=== PATIENT | male | born 1955 | race Caucasian/White ===

== ENCOUNTER 2021-05-08 00:03 | Inpatient (IN) | payer OTHER, MEDICARE, MEDICAID ==
[~2021-05-08] VITALS: Ht 170.2 cm; Wt 63.0 kg
[2021-05-08] MEDS ORDERED: PRAV20TA4 PO (01:15)
[2021-05-08] MEDS ORDERED: METH-603 PO (01:15)
[2021-05-08] MEDS: normal saline 1000ml 1,000 ML IV SCH (01:30)
[2021-05-08] MEDS ORDERED: potassium Cl 20 mEq SR tablet PO PRN ×2 (01:30)
[2021-05-08] MEDS ORDERED: magnesium 2GM in 50ml NS 50 ML IV PRN (01:30)
[2021-05-08] MEDS ORDERED: magnesium 4gm in 100ml NS 100 ML IV PRN (01:30)
[2021-05-08] MEDS ORDERED: magnesium Cl slow-release 64mg tablet PO PRN (01:30)
[2021-05-08] MEDS ORDERED: ondansetron/PF 4mg/2ml inj IV PRN (01:30)
[2021-05-08] MEDS ORDERED: potassium Cl 40MEQ/1/2NS 520ml 520 ML IV PRN ×2 (01:30)
[2021-05-08] MEDS ORDERED: acetaminophen 325mg tablet PO PRN (01:30)
[2021-05-08 03:27] LABS: D-DIMER 0.53 MG/L FEU (0-0.50)
[2021-05-08 03:29] LABS: C-REACTIVE PROTEIN 15.26 MG/DL (0.0-0.5)
[2021-05-08 03:56] VITALS: BP 150/76
[2021-05-08 06:00] VITALS: BP 127/72
--- NOTE | 2021-05-08 06:16 | NUR ---
patient recieved at 0325 from ED department, arrives in w/c. patient assisted to bed. bed mobility independent. education and room orientation reviewed with patient. patinet on 4L NC. patient admitted because he was deeloping sob and dizziness two days ago 9 days after covid vaccination. patient dx covid positive. saturates @ 96% on 4L NC. no distress ntoed. skin check perfomed with charge december rn , no abnormalities noted. patient lives at home alone takes care of self, reports that he has leukemia. patient dneies taking any other medications other than for leukemia. bbl, night light on, fall safety measures installed.
--- NOTE | 2021-05-08 06:45 | NUR ---
Patient in room COVID 02. I have received report from ELVA MARTINEZ and had the opportunity to ask questions and assume patient care.
[2021-05-08] MEDS ORDERED: heparin, porcine 5000 units/ml vial SQ SCH (08:00)
[2021-05-08] MEDS: K and/or MAG REPLACEMENT MC SCH (08:00)
[2021-05-08] MEDS: dexamethasone 4mg/ml inj IV SCH ×2 (10:14→20:41)
[2021-05-08 11:00] VITALS: BP 124/71
[2021-05-08 14:00] VITALS: BP 118/62
[2021-05-08 18:00] VITALS: BP 123/75
--- NOTE | 2021-05-08 18:00 | NUR ---
report recieved from gladis Dillon.
--- NOTE | 2021-05-08 18:34 | NUR ---
Problems reprioritized. Patient report given, questions answered & plan of care reviewed with ELVA MARTINEZ.
[2021-05-08] MEDS: REMDESIVIR INJ 100 MG in normal saline 100ml IV soln 80 ML IV SCH (20:41)
[2021-05-08] MEDS: methadone 10mg tablet PO SCH (20:42)
[2021-05-08] MEDS: enoxaparin 40mg/0.4ml syringe SUBCUT SCH (20:42)
[2021-05-08 22:00] VITALS: BP 133/65
[2021-05-09 02:00] VITALS: BP 144/62
[2021-05-09 06:00] VITALS: BP 120/69
[2021-05-09] MEDS: K and/or MAG REPLACEMENT MC SCH ×2 (08:00→20:00)
[2021-05-09] MEDS: methadone 10mg tablet PO SCH ×3 (08:00→21:08)
[2021-05-09] MEDS: atorvastatin 10mg tablet PO SCH (08:23)
[2021-05-09] MEDS: dexamethasone 4mg/ml inj IV SCH ×2 (08:24→21:11)
[2021-05-09 08:33] LABS: BASOPHILS % (AUTO) 0 % (0-1); EOSINOPHILS % (AUTO) 0 % (0-6); HEMATOCRIT 43.9 % (42.0-52.0); HEMOGLOBIN 14.5 g/dl (14.0-17.9); LYMPHOCYTES # (AUTO) 0.8 X10'3 (1.1-4.8); LYMPHOCYTES % (AUTO) 5.5 % (21-51); MEAN CORPUSCULAR HEMOGLOBIN 29.2 PG (27.0-31.0); MEAN CORPUSCULAR HGB CONC 33.1 g/dL (33.0-36.5); MEAN CORPUSCULAR VOLUME 88.1 FL (78-98); MEAN PLATELET VOLUME 8.9 FL (7.4-10.4); MONOCYTES # (AUTO) 1.1 X10'3 (0-0.9); MONOCYTES % (AUTO) 7.8 % (2-12); NEUTROPHILS # (AUTO) 12.3 X10'3 (1.8-7.7); NEUTROPHILS % (AUTO) 86.7 % (42-75); PLATELET COUNT 230 X10'3 (140-440); RED BLOOD COUNT 4.98 X10'6 (4.70-6.10); RED CELL DISTRIBUTION WIDTH 15.2 % (11.5-14.5); WHITE BLOOD COUNT 14.2 X10'3 (4.5-11.0)
[2021-05-09 08:49] LABS: D-DIMER 0.65 MG/L FEU (0-0.50)
[2021-05-09 09:07] LABS: ALANINE AMINOTRANSFERASE 20 U/L (12-78); ALBUMIN 2.1 G/DL (3.4-5.0); ALBUMIN/GLOBULIN RATIO 0.6 (1.1-1.5); ALKALINE PHOSPHATASE 55 IU/L (46-116); ANION GAP 8 (8-16); ASPARTATE AMINO TRANSFERASE 27 U/L (10-37); BILIRUBIN,TOTAL 0.4 MG/DL (0.1-1.0); BLOOD UREA NITROGEN 25 MG/DL (7-18); BUN/CREATININE RATIO 27.5 (5.4-32.0); C-REACTIVE PROTEIN 13.88 MG/DL (0.0-0.5); CALCIUM 8.5 MG/DL (8.5-10.1); CHLORIDE 103 MMOL/L (99-107); CREATININE 0.91 MG/DL (0.60-1.10); GLUCOSE 147 MG/DL (70-104); MAGNESIUM 1.7 MG/DL (1.5-2.4); POTASSIUM 4.1 MMOL/L (3.5-5.1); SODIUM 136 MMOL/L (135-145); TOTAL CARBON DIOXIDE 24.9 MMOL/L (24-32); TOTAL PROTEIN 5.4 G/DL (6.4-8.2); eGFR 83 ML/MIN
[2021-05-09 11:00] VITALS: BP 128/66
[2021-05-09 15:00] VITALS: BP 120/71
--- NOTE | 2021-05-09 19:03 | NUR ---
Patient in room COVID 02. I have received report from Jean Pierre STEVENSON and had the opportunity to ask questions and assume patient care.
[2021-05-09 20:00] VITALS: BP 122/70
[2021-05-09] MEDS: REMDESIVIR INJ 100 MG in normal saline 100ml IV soln 80 ML IV SCH (21:08)
[2021-05-09] MEDS: enoxaparin 40mg/0.4ml syringe SUBCUT SCH (21:09)
[2021-05-09] MEDS: acetaminophen 325mg tablet PO PRN (21:23)
[2021-05-09 21:24] VITALS: BP 118/76
[2021-05-10] VITALS: BP 121/72
[2021-05-10] MEDS: normal saline 1000ml 1,000 ML IV SCH (01:30)
--- NOTE | 2021-05-10 06:42 | NUR ---
Problems reprioritized. Patient report given, questions answered & plan of care reviewed with Maria Elena STEVENSON.
[2021-05-10 07:00] VITALS: BP 118/76
[2021-05-10 07:52] LABS: BASOPHILS % (AUTO) 0.1 % (0-1); EOSINOPHILS % (AUTO) 0 % (0-6); HEMATOCRIT 49.6 % (42.0-52.0); HEMOGLOBIN 16.6 g/dl (14.0-17.9); LYMPHOCYTES # (AUTO) 0.5 X10'3 (1.1-4.8); LYMPHOCYTES % (AUTO) 3.8 % (21-51); MEAN CORPUSCULAR HEMOGLOBIN 29.5 PG (27.0-31.0); MEAN CORPUSCULAR HGB CONC 33.5 g/dL (33.0-36.5); MEAN CORPUSCULAR VOLUME 88.1 FL (78-98); MEAN PLATELET VOLUME 8.5 FL (7.4-10.4); MONOCYTES # (AUTO) 0.8 X10'3 (0-0.9); MONOCYTES % (AUTO) 6.3 % (2-12); NEUTROPHILS % (AUTO) 89.8 % (42-75); PLATELET COUNT 260 X10'3 (140-440); RED BLOOD COUNT 5.63 X10'6 (4.70-6.10); RED CELL DISTRIBUTION WIDTH 15.6 % (11.5-14.5); WHITE BLOOD COUNT 13.4 X10'3 (4.5-11.0)
[2021-05-10] MEDS: atorvastatin 10mg tablet PO SCH (07:59)
[2021-05-10] MEDS: dexamethasone 4mg/ml inj IV SCH (07:59)
[2021-05-10] MEDS: methadone 10mg tablet PO SCH ×2 (07:59→20:00)
[2021-05-10] MEDS: K and/or MAG REPLACEMENT MC SCH ×2 (08:00→20:00)
[2021-05-10 08:03] LABS: D-DIMER 0.81 MG/L FEU (0-0.50)
[2021-05-10 08:17] LABS: ALANINE AMINOTRANSFERASE 29 U/L (12-78); ALBUMIN 2.1 G/DL (3.4-5.0); ALBUMIN/GLOBULIN RATIO 0.6 (1.1-1.5); ALKALINE PHOSPHATASE 60 IU/L (46-116); ANION GAP 8 (8-16); ASPARTATE AMINO TRANSFERASE 47 U/L (10-37); BILIRUBIN,TOTAL 0.5 MG/DL (0.1-1.0); BLOOD UREA NITROGEN 25 MG/DL (7-18); BUN/CREATININE RATIO 29.4 (5.4-32.0); C-REACTIVE PROTEIN 17.63 MG/DL (0.0-0.5); CALCIUM 8.9 MG/DL (8.5-10.1); CHLORIDE 101 MMOL/L (99-107); CREATININE 0.85 MG/DL (0.60-1.10); GLUCOSE 165 MG/DL (70-104); MAGNESIUM 1.8 MG/DL (1.5-2.4); POTASSIUM 4.1 MMOL/L (3.5-5.1); SODIUM 134 MMOL/L (135-145); TOTAL CARBON DIOXIDE 25.1 MMOL/L (24-32); TOTAL PROTEIN 5.6 G/DL (6.4-8.2); eGFR 90 ML/MIN
[2021-05-10 11:00] VITALS: BP 118/76
[2021-05-10] MEDS: CefTRIAXone 2gm/D5W 50ml BAG 50 ML IV SCH (12:49)
[2021-05-10 15:00] VITALS: BP 123/77
[2021-05-10] MEDS: methylPREDNISolone sod succ/PF 40mg inj. IV SCH (16:55)
--- NOTE | 2021-05-10 18:30 | NUR ---
Patient in room COVID 02. I have received report from CRISTHIAN STEVENSON and had the opportunity to ask questions and assume patient care.
[2021-05-10] MEDS: acetaminophen 325mg tablet PO PRN (19:15)
[2021-05-10] MEDS: REMDESIVIR INJ 100 MG in normal saline 100ml IV soln 80 ML IV SCH (19:42)
[2021-05-10 20:00] VITALS: BP 135/74
[2021-05-10] MEDS: enoxaparin 40mg/0.4ml syringe SUBCUT SCH (23:07)
[2021-05-11] VITALS: BP 145/80
[2021-05-11] MEDS: methylPREDNISolone sod succ/PF 40mg inj. IV SCH ×4 (00:44→23:49)
[2021-05-11] MEDS: methadone 10mg tablet PO SCH ×4 (00:50→21:53)
[2021-05-11 04:00] VITALS: BP 128/73
--- NOTE | 2021-05-11 06:30 | NUR ---
Problems reprioritized. Patient report given, questions answered & plan of care reviewed with WILMER STEVENSON.
[2021-05-11 08:00] VITALS: BP 119/58
[2021-05-11] MEDS: K and/or MAG REPLACEMENT MC SCH ×2 (08:00→20:00)
[2021-05-11] MEDS: CefTRIAXone 2gm/D5W 50ml BAG 50 ML IV SCH (08:52)
[2021-05-11] MEDS: atorvastatin 10mg tablet PO SCH (08:52)
[2021-05-11 09:01] LABS: BASOPHILS % (AUTO) 0.1 % (0-1); EOSINOPHILS % (AUTO) 0 % (0-6); HEMATOCRIT 49.8 % (42.0-52.0); HEMOGLOBIN 16.5 g/dl (14.0-17.9); LYMPHOCYTES # (AUTO) 0.6 X10'3 (1.1-4.8); LYMPHOCYTES % (AUTO) 5.1 % (21-51); MEAN CORPUSCULAR HEMOGLOBIN 29.3 PG (27.0-31.0); MEAN CORPUSCULAR VOLUME 88.8 FL (78-98); MEAN PLATELET VOLUME 8.2 FL (7.4-10.4); MONOCYTES # (AUTO) 1.1 X10'3 (0-0.9); MONOCYTES % (AUTO) 9.8 % (2-12); NEUTROPHILS # (AUTO) 9.8 X10'3 (1.8-7.7); PLATELET COUNT 288 X10'3 (140-440); RED BLOOD COUNT 5.61 X10'6 (4.70-6.10); RED CELL DISTRIBUTION WIDTH 15.4 % (11.5-14.5); WHITE BLOOD COUNT 11.5 X10'3 (4.5-11.0)
[2021-05-11 09:20] LABS: D-DIMER 1.05 MG/L FEU (0-0.50)
[2021-05-11 09:39] LABS: ALANINE AMINOTRANSFERASE 28 U/L (12-78); ALBUMIN 2.1 G/DL (3.4-5.0); ALBUMIN/GLOBULIN RATIO 0.6 (1.1-1.5); ALKALINE PHOSPHATASE 60 IU/L (46-116); ANION GAP 6 (8-16); ASPARTATE AMINO TRANSFERASE 33 U/L (10-37); BILIRUBIN,TOTAL 0.4 MG/DL (0.1-1.0); BLOOD UREA NITROGEN 37 MG/DL (7-18); BUN/CREATININE RATIO 37.4 (5.4-32.0); C-REACTIVE PROTEIN 14.65 MG/DL (0.0-0.5); CALCIUM 9.4 MG/DL (8.5-10.1); CHLORIDE 100 MMOL/L (99-107); CREATININE 0.99 MG/DL (0.60-1.10); GLUCOSE 185 MG/DL (70-104); MAGNESIUM 2.2 MG/DL (1.5-2.4); POTASSIUM 4.2 MMOL/L (3.5-5.1); SODIUM 134 MMOL/L (135-145); TOTAL PROTEIN 5.8 G/DL (6.4-8.2); eGFR 75 ML/MIN
[2021-05-11 12:00] VITALS: BP 134/65
[2021-05-11] MEDS ORDERED: ondansetron 4mg rapidly disintigrating tab PO PRN (15:15)
--- NOTE | 2021-05-11 17:09 | NUR ---
PAGER ID: [phone] MESSAGE: Edie [phone]- re Ken Roberson- c/o 06/25 pain, non specific. Has chronic pain syndrome. Has methadone BID but nothing for breakthrough. Can we order short acting too? Eleroy Q6? Thank you
[2021-05-11] MEDS: HYDROcodone/acetaminophen 5mg/325mg tablet PO PRN ×2 (17:48→21:54)
--- NOTE | 2021-05-11 21:28 | NUR ---
switch technician noted ST changes and lengthened QT on mobile monitor. EKG was done, Dr. Robledo on unit and reviewed EKG unremarkable, no change in orders. Will continue to monitor.
[2021-05-11] MEDS: enoxaparin 40mg/0.4ml syringe SUBCUT SCH (21:52)
[2021-05-11] MEDS: lactobacillus rhamnosus 10,000 MMU CELLS/CAPSULE PO SCH (21:55)
[2021-05-11] MEDS: REMDESIVIR INJ 100 MG in normal saline 100ml IV soln 80 ML IV SCH (21:55)
[2021-05-11 22:00] VITALS: BP 127/68
[2021-05-12 02:00] VITALS: BP 137/70
[2021-05-12] MEDS: normal saline 1000ml 1,000 ML IV SCH (05:57)
[2021-05-12 07:00] VITALS: BP 175/85
[2021-05-12] MEDS: K and/or MAG REPLACEMENT MC SCH ×2 (08:00→20:00)
[2021-05-12] MEDS: lactobacillus rhamnosus 10,000 MMU CELLS/CAPSULE PO SCH ×2 (08:00→20:30)
[2021-05-12] MEDS: CefTRIAXone 2gm/D5W 50ml BAG 50 ML IV SCH (08:18)
[2021-05-12] MEDS: methylPREDNISolone sod succ/PF 40mg inj. IV SCH ×2 (08:18→15:59)
[2021-05-12] MEDS: methadone 10mg tablet PO SCH ×2 (08:19→20:30)
[2021-05-12] MEDS: atorvastatin 10mg tablet PO SCH (08:19)
[2021-05-12 09:14] LABS: D-DIMER 0.79 MG/L FEU (0-0.50)
[2021-05-12 09:33] LABS: ANION GAP 9 (8-16); BLOOD UREA NITROGEN 40 MG/DL (7-18); CHLORIDE 101 MMOL/L (99-107); CREATININE 0.97 MG/DL (0.60-1.10); GLUCOSE 231 MG/DL (70-104); SODIUM 136 MMOL/L (135-145); TOTAL CARBON DIOXIDE 26.5 MMOL/L (24-32)
[2021-05-12 09:34] LABS: ALANINE AMINOTRANSFERASE 27 U/L (12-78); ALBUMIN 2.1 G/DL (3.4-5.0); ALBUMIN/GLOBULIN RATIO 0.6 (1.1-1.5); ALKALINE PHOSPHATASE 55 IU/L (46-116); ASPARTATE AMINO TRANSFERASE 27 U/L (10-37); BILIRUBIN,TOTAL 0.2 MG/DL (0.1-1.0); BUN/CREATININE RATIO 41.2 (5.4-32.0); C-REACTIVE PROTEIN 6.63 MG/DL (0.0-0.5); CALCIUM 9.1 MG/DL (8.5-10.1); MAGNESIUM 2.2 MG/DL (1.5-2.4); POTASSIUM 4.4 MMOL/L (3.5-5.1); TOTAL PROTEIN 5.7 G/DL (6.4-8.2); eGFR 77 ML/MIN
[2021-05-12 11:00] VITALS: BP 121/65
[2021-05-12 11:14] LABS: BASOPHILS % (AUTO) 0.1 % (0-1); EOSINOPHILS % (AUTO) 0 % (0-6); HEMATOCRIT 43.6 % (42.0-52.0); HEMOGLOBIN 14.7 g/dl (14.0-17.9); LYMPHOCYTES # (AUTO) 0.5 X10'3 (1.1-4.8); LYMPHOCYTES % (AUTO) 5.1 % (21-51); MEAN CORPUSCULAR HEMOGLOBIN 29.7 PG (27.0-31.0); MEAN CORPUSCULAR HGB CONC 33.7 g/dL (33.0-36.5); MEAN CORPUSCULAR VOLUME 88.2 FL (78-98); MEAN PLATELET VOLUME 7.7 FL (7.4-10.4); MONOCYTES # (AUTO) 0.8 X10'3 (0-0.9); MONOCYTES % (AUTO) 7.8 % (2-12); NEUTROPHILS # (AUTO) 8.6 X10'3 (1.8-7.7); PLATELET COUNT 280 X10'3 (140-440); RED BLOOD COUNT 4.95 X10'6 (4.70-6.10); RED CELL DISTRIBUTION WIDTH 14.8 % (11.5-14.5); WHITE BLOOD COUNT 9.9 X10'3 (4.5-11.0)
[2021-05-12 15:00] VITALS: BP 149/70
[2021-05-12 18:00] VITALS: BP 147/62
--- NOTE | 2021-05-12 18:13 | NUR ---
Problems reprioritized. Patient report given, questions answered & plan of care reviewed with Jovan STEVENSON.
--- NOTE | 2021-05-12 18:15 | NUR ---
Patient in room COVID 05. I have received report from ELVA King and had the opportunity to ask questions and assume patient care.
--- NOTE | 2021-05-12 20:00 | NUR ---
Partuient is resting comfortably in no apparent distress. VSS in normal limits
[2021-05-12] MEDS: enoxaparin 40mg/0.4ml syringe SUBCUT SCH (20:31)
[2021-05-13] MEDS: methylPREDNISolone sod succ/PF 40mg inj. IV SCH ×4 (01:23→23:23)
[2021-05-13 02:00] VITALS: BP 150/70
--- NOTE | 2021-05-13 06:31 | NUR ---
Problems reprioritized. Patient report given, questions answered & plan of care reviewed with ELVA Wakefield.
--- NOTE | 2021-05-13 06:40 | NUR ---
Patient in room COVID 05. I have received report from ELVA LOWE and had the opportunity to ask questions and assume patient care.
[2021-05-13 07:00] VITALS: BP 156/71
[2021-05-13] MEDS: K and/or MAG REPLACEMENT MC SCH ×2 (08:00→19:41)
[2021-05-13 08:30] LABS: BASOPHILS % (AUTO) 0.1 % (0-1); EOSINOPHILS % (AUTO) 0 % (0-6); HEMATOCRIT 45.5 % (42.0-52.0); LYMPHOCYTES # (AUTO) 0.6 X10'3 (1.1-4.8); LYMPHOCYTES % (AUTO) 4.9 % (21-51); MEAN CORPUSCULAR HEMOGLOBIN 29.2 PG (27.0-31.0); MEAN CORPUSCULAR HGB CONC 32.9 g/dL (33.0-36.5); MEAN CORPUSCULAR VOLUME 88.6 FL (78-98); MEAN PLATELET VOLUME 7.9 FL (7.4-10.4); MONOCYTES # (AUTO) 0.7 X10'3 (0-0.9); MONOCYTES % (AUTO) 5.3 % (2-12); NEUTROPHILS # (AUTO) 11.4 X10'3 (1.8-7.7); NEUTROPHILS % (AUTO) 89.7 % (42-75); PLATELET COUNT 333 X10'3 (140-440); RED BLOOD COUNT 5.14 X10'6 (4.70-6.10); RED CELL DISTRIBUTION WIDTH 14.8 % (11.5-14.5); WHITE BLOOD COUNT 12.7 X10'3 (4.5-11.0)
[2021-05-13 08:59] LABS: D-DIMER 0.85 MG/L FEU (0-0.50)
[2021-05-13 09:06] LABS: PLATELET ESTIMATE NORMAL; TOTAL CELLS COUNTED 100
[2021-05-13 09:20] LABS: ALANINE AMINOTRANSFERASE 44 U/L (12-78); ALBUMIN 2.2 G/DL (3.4-5.0); ALBUMIN/GLOBULIN RATIO 0.6 (1.1-1.5); ALKALINE PHOSPHATASE 139 IU/L (46-116); ANION GAP 7 (8-16); ASPARTATE AMINO TRANSFERASE 40 U/L (10-37); BILIRUBIN,TOTAL 0.3 MG/DL (0.1-1.0); BLOOD UREA NITROGEN 38 MG/DL (7-18); BUN/CREATININE RATIO 36.5 (5.4-32.0); C-REACTIVE PROTEIN 3.87 MG/DL (0.0-0.5); CALCIUM 8.9 MG/DL (8.5-10.1); CHLORIDE 101 MMOL/L (99-107); CREATININE 1.04 MG/DL (0.60-1.10); GLUCOSE 234 MG/DL (70-104); MAGNESIUM 1.9 MG/DL (1.5-2.4); POTASSIUM 4.2 MMOL/L (3.5-5.1); SODIUM 135 MMOL/L (135-145); TOTAL CARBON DIOXIDE 27.5 MMOL/L (24-32); TOTAL PROTEIN 5.6 G/DL (6.4-8.2); eGFR 71 ML/MIN
[2021-05-13 11:00] VITALS: BP 139/63
--- NOTE | 2021-05-13 11:32 | NUR ---
Initial: Pt admit for acute respiratory failure with hypoxia and COVID-19 infection with bilat PNA. Pt on an easy to chew regular diet, initially with 50% PO intake down to 25% PO intake, however back up to 50% PO intake at two most recent documented meals. Pt currently not meeting estimated nutrient needs. Recommend Ensure Enlive TID to optimize PO intake. ONS to be sent pending MD approval in EMR. Noted pt A/O x 2 and confused per physical assessment though documented to be independent with meals. Pt would likely benefit from assistance with meals. D/w dietary to chop meat to assist. LBM 05/10, not receiving bowel care. D/w dietary to send prune juice with next meal to assist with bowel regularity. Will continue to follow closely. Recommendations: 1) Continue EC7 regular diet 2) Chop meat; monitor need for encouragement and assistance with meals given pt A/O x 2 and confused 3) Ensure Enlive TID, pending MD approval in EMR 4) Routine bowel care 5) Scaled weight this admit; weekly scaled weights thereafter Addendum: 05/13/21 at [address] Amended: Links added.
[2021-05-13] MEDS: atorvastatin 10mg tablet PO SCH (11:44)
[2021-05-13] MEDS: lactobacillus rhamnosus 10,000 MMU CELLS/CAPSULE PO SCH ×2 (11:44→19:45)
[2021-05-13] MEDS: enoxaparin 40mg/0.4ml syringe SUBCUT SCH ×2 (11:45→19:45)
[2021-05-13] MEDS: methadone 10mg tablet PO SCH ×2 (11:45→19:45)
[2021-05-13] MEDS: CefTRIAXone 2gm/D5W 50ml BAG 50 ML IV SCH (11:46)
[2021-05-13] MEDS: lactose-reduced food (Ensure Enlive) - 237ml bottle PO SCH ×2 (13:00→18:00)
[2021-05-13 16:00] VITALS: BP 133/54
[2021-05-13] MEDS ORDERED: ALBUTEROL INHALER 1 PUFF/90 MCG INHALER IH PRN (16:05)
[2021-05-13 18:00] VITALS: BP 152/60
--- NOTE | 2021-05-13 18:15 | NUR ---
Patient in room COVID 05. I have received report from Twyla STEVENSON and had the opportunity to ask questions and assume patient care.
--- NOTE | 2021-05-13 18:35 | NUR ---
Problems reprioritized. Patient report given, questions answered & plan of care reviewed with ELVA LYNCH.
--- NOTE | 2021-05-13 18:35 | NUR ---
Problems reprioritized. Patient report given, questions answered & plan of care reviewed with ELVA LYNCH.
[2021-05-13] MEDS: HYDROcodone/acetaminophen 5mg/325mg tablet PO PRN (21:08)
[2021-05-13 22:00] VITALS: BP 154/77
[2021-05-14] MEDS: normal saline 1000ml 1,000 ML IV SCH (01:30)
[2021-05-14 03:00] VITALS: BP 150/75
--- NOTE | 2021-05-14 06:16 | NUR ---
Problems reprioritized. Patient report given, questions answered & plan of care reviewed with Twyla STEVENSON.
--- NOTE | 2021-05-14 06:17 | NUR ---
Patient in room COVID 05. I have received report from ELVA LNYCH and had the opportunity to ask questions and assume patient care.
[2021-05-14 07:00] VITALS: BP 147/69
[2021-05-14] MEDS: lactose-reduced food (Ensure Enlive) - 237ml bottle PO SCH ×3 (08:00→18:01)
[2021-05-14] MEDS: K and/or MAG REPLACEMENT MC SCH ×2 (08:00→20:00)
[2021-05-14 08:38] LABS: MAGNESIUM 2.1 MG/DL (1.5-2.4)
[2021-05-14 09:30] LABS: D-DIMER 0.69 MG/L FEU (0-0.50)
[2021-05-14 09:34] LABS: BASOPHILS % (AUTO) 0.1 % (0-1); EOSINOPHILS % (AUTO) 0.1 % (0-6); HEMATOCRIT 44.5 % (42.0-52.0); HEMOGLOBIN 14.4 g/dl (14.0-17.9); LYMPHOCYTES # (AUTO) 0.5 X10'3 (1.1-4.8); LYMPHOCYTES % (AUTO) 4.7 % (21-51); MEAN CORPUSCULAR HEMOGLOBIN 28.8 PG (27.0-31.0); MEAN CORPUSCULAR HGB CONC 32.5 g/dL (33.0-36.5); MEAN CORPUSCULAR VOLUME 88.6 FL (78-98); MEAN PLATELET VOLUME 7.9 FL (7.4-10.4); MONOCYTES # (AUTO) 0.7 X10'3 (0-0.9); MONOCYTES % (AUTO) 5.7 % (2-12); NEUTROPHILS # (AUTO) 10.4 X10'3 (1.8-7.7); NEUTROPHILS % (AUTO) 89.4 % (42-75); PLATELET COUNT 343 X10'3 (140-440); RED BLOOD COUNT 5.02 X10'6 (4.70-6.10); RED CELL DISTRIBUTION WIDTH 14.8 % (11.5-14.5); WHITE BLOOD COUNT 11.6 X10'3 (4.5-11.0)
[2021-05-14 09:51] LABS: ALANINE AMINOTRANSFERASE 42 U/L (12-78); ALBUMIN 2.2 G/DL (3.4-5.0); ALBUMIN/GLOBULIN RATIO 0.7 (1.1-1.5); ALKALINE PHOSPHATASE 106 IU/L (46-116); ANION GAP 7 (8-16); ASPARTATE AMINO TRANSFERASE 24 U/L (10-37); BILIRUBIN,TOTAL 0.3 MG/DL (0.1-1.0); BLOOD UREA NITROGEN 32 MG/DL (7-18); BUN/CREATININE RATIO 34.4 (5.4-32.0); C-REACTIVE PROTEIN 2.58 MG/DL (0.0-0.5); CALCIUM 8.5 MG/DL (8.5-10.1); CHLORIDE 99 MMOL/L (99-107); CREATININE 0.93 MG/DL (0.60-1.10); GLUCOSE 254 MG/DL (70-104); POTASSIUM 4.2 MMOL/L (3.5-5.1); SODIUM 137 MMOL/L (135-145); TOTAL CARBON DIOXIDE 30.8 MMOL/L (24-32); TOTAL PROTEIN 5.5 G/DL (6.4-8.2); eGFR 81 ML/MIN
[2021-05-14] MEDS: enoxaparin 40mg/0.4ml syringe SUBCUT SCH ×2 (09:52→20:00)
[2021-05-14] MEDS: methylPREDNISolone sod succ/PF 40mg inj. IV SCH ×2 (09:53→17:23)
[2021-05-14] MEDS: lactobacillus rhamnosus 10,000 MMU CELLS/CAPSULE PO SCH ×2 (09:53→19:59)
[2021-05-14] MEDS: methadone 10mg tablet PO SCH ×2 (09:53→19:59)
[2021-05-14] MEDS: atorvastatin 10mg tablet PO SCH (09:53)
[2021-05-14 12:00] VITALS: BP 153/70
[2021-05-14 14:00] VITALS: BP 134/75
--- NOTE | 2021-05-14 16:32 | NUR ---
IT HAD BEEN BROUGHT TO THIS NURSE'S ATTENTION THAT PATIENT HEART RATE WAS HANGING OUT IN THE MID TO HIGH 40'S, NOTICED THAT HEART WOULD BE IN THE 40'S WHILE SLEEPING AND WHILE AWAKE FOR BE IN NORMAL RANGE. NOTIFIED THE DR, DR STATED THAT SOME PATIENT'S WILL HAVE A LOW HEART RATE WHILE SLEEPING AND WAS NOT CONCERNED AT THIS TIME
[2021-05-14 18:00] VITALS: BP 121/66
--- NOTE | 2021-05-14 18:26 | NUR ---
Problems reprioritized. Patient report given, questions answered & plan of care reviewed with ELVA LYNCH.
--- NOTE | 2021-05-14 18:30 | NUR ---
Patient in room COVID 05. I have received report from Twyla STEVENSON and had the opportunity to ask questions and assume patient care.
[2021-05-14 22:00] VITALS: BP 117/60
[2021-05-15] MEDS: methylPREDNISolone sod succ/PF 40mg inj. IV SCH ×3 (00:10→20:05)
[2021-05-15 02:00] VITALS: BP 147/87
[2021-05-15] MEDS: HYDROcodone/acetaminophen 5mg/325mg tablet PO PRN ×3 (04:42→22:45)
[2021-05-15] MEDS: lactobacillus rhamnosus 10,000 MMU CELLS/CAPSULE PO SCH ×2 (07:33→20:05)
[2021-05-15] MEDS: atorvastatin 10mg tablet PO SCH (07:33)
[2021-05-15] MEDS: methadone 10mg tablet PO SCH ×2 (07:33→20:05)
[2021-05-15] MEDS: K and/or MAG REPLACEMENT MC SCH ×2 (07:33→20:00)
[2021-05-15] MEDS: lactose-reduced food (Ensure Enlive) - 237ml bottle PO SCH ×3 (07:34→17:55)
[2021-05-15] MEDS: enoxaparin 40mg/0.4ml syringe SUBCUT SCH ×2 (07:35→20:06)
[2021-05-15] MEDS: normal saline 1000ml 1,000 ML IV SCH ×2 (07:37→11:16)
[2021-05-15 08:00] VITALS: BP 130/79
--- NOTE | 2021-05-15 09:05 | NUR ---
PAGER ID: [phone] MESSAGE: Alfonso Chu 5A PT. SHOWING INCREASED S/SX CONFUSION. HEAD CT? ABGS? UA SENT. Vincenzo [id number] CONFUSION INCREASING SLIGHTLY OVER SEVERAL SHIFTS PER REPORT. PT A&0X1 PER ASSESSMENT.
[2021-05-15 09:18] LABS: CLARITY,URINE CLEAR (Clear); COLOR,URINE YELLOW (Yellow); GLUCOSE, URINE >=1000 mg/dl (Neg); KETONES,URINE NEGATIVE (Neg); LEUKOCYTE ESTERASE ,URINE NEGATIVE (Neg); NITRITES, URINE NEGATIVE (Neg); OCCULT BLOOD,URINE NEGATIVE (Neg); PROTEIN,URINE NEGATIVE (Neg); UROBILINOGEN,URINE 0.2 E.U/dL (0.2-1.0)
[2021-05-15 09:34] LABS: UA COLLECTION TYPE CLN CATCH MIDSTREAM
[2021-05-15 09:35] LABS: BACTERIA,URINE FEW /HPF (Neg); RBC,URINE 0-2 /HPF (0-2); SQUAMOUS EPITHELIAL CELL,UR MODERATE /LPF (FEW); WBC,URINE 0-4 /HPF (0-4)
[2021-05-15 09:56] LABS: ALANINE AMINOTRANSFERASE 46 U/L (12-78); ALBUMIN 2.3 G/DL (3.4-5.0); ALBUMIN/GLOBULIN RATIO 0.6 (1.1-1.5); ALKALINE PHOSPHATASE 130 IU/L (46-116); ASPARTATE AMINO TRANSFERASE 30 U/L (10-37); BILIRUBIN,TOTAL 0.6 MG/DL (0.1-1.0); C-REACTIVE PROTEIN 1.79 MG/DL (0.0-0.5); CALCIUM 9.2 MG/DL (8.5-10.1); CHLORIDE 93 MMOL/L (99-107); CREATININE 0.97 MG/DL (0.60-1.10); GLUCOSE 305 MG/DL (70-104); MAGNESIUM 2.6 MG/DL (1.5-2.4); TOTAL CARBON DIOXIDE 27.1 MMOL/L (24-32); TOTAL PROTEIN 6.3 G/DL (6.4-8.2); eGFR 77 ML/MIN
--- NOTE | 2021-05-15 10:01 | NUR ---
PAGER ID: [phone] MESSAGE: Alfonso BARRAGAN 5A FYI PT. GLUCOSE>200 FOR SOME TIME. NO PROTOCOL ORDERED, NO ACCUCHECKS ORDERED. GLUCOSE.> 1000 IN URINE MAMI [id number]
[2021-05-15 10:02] LABS: ANION GAP 11 (8-16); BLOOD UREA NITROGEN 36 MG/DL (7-18); BUN/CREATININE RATIO 37.1 (5.4-32.0); SODIUM 131 MMOL/L (135-145)
[2021-05-15] MEDS ORDERED: MESSAGE TO PHARMACY PO ONE (10:05)
[2021-05-15] MEDS ORDERED: dextrose 50%-water 50ml dispensing syringe IV PRN ×2 (10:05)
[2021-05-15] MEDS ORDERED: dextrose ORAL solution 15 GM/59 ML bottle PO PRN ×2 (10:05)
[2021-05-15] MEDS ORDERED: glucagon, human recombinant 1mg kit SUBCUT PRN (10:05)
[2021-05-15 10:11] LABS: ABG BASE EXCESS 4.5 mmol/L (-2.0-2.0); ABG HCO3 27.6 mmol/L (22.0-26.0); ABG OXYGEN SATURATION 91.9 % (94-97); ABG PCO2 (T) 36.6 mmHg (35.0-48.0); ABG PO2 (T) 57.9 mmHg (75.0-100.0); ALLEN'S TEST POSITIVE; FCOHb 0.5 % (0.0-3.9); FLOW 6 L/min; FMetHb 0.1 % (0.0-1.5); FO2Hb 91.3 % (94-97); TOTAL HEMOGLOBIN 15.5 G/dl (14.0-18.0)
[2021-05-15] MEDS ORDERED: normal saline 1000ml 1,000 ML IV SCH (10:40)
[2021-05-15 10:54] LABS: BASOPHILS # (AUTO) 0.1 X10'3 (0-0.2); BASOPHILS % (AUTO) 0.2 % (0-1); EOSINOPHILS % (AUTO) 0 % (0-6); HEMATOCRIT 45.5 % (42.0-52.0); HEMOGLOBIN 14.9 g/dl (14.0-17.9); LYMPHOCYTES # (AUTO) 0.3 X10'3 (1.1-4.8); LYMPHOCYTES % (AUTO) 1.6 % (21-51); MEAN CORPUSCULAR HEMOGLOBIN 28.8 PG (27.0-31.0); MEAN CORPUSCULAR HGB CONC 32.6 g/dL (33.0-36.5); MEAN CORPUSCULAR VOLUME 88.2 FL (78-98); MEAN PLATELET VOLUME 7.4 FL (7.4-10.4); MONOCYTES # (AUTO) 0.9 X10'3 (0-0.9); MONOCYTES % (AUTO) 4.1 % (2-12); NEUTROPHILS # (AUTO) 19.8 X10'3 (1.8-7.7); NEUTROPHILS % (AUTO) 94.1 % (42-75); PLATELET COUNT 383 X10'3 (140-440); RED BLOOD COUNT 5.16 X10'6 (4.70-6.10); WHITE BLOOD COUNT 21.1 X10'3 (4.5-11.0)
[2021-05-15 11:00] VITALS: BP 139/60
[2021-05-15 11:14] LABS: D-DIMER 0.55 MG/L FEU (0-0.50)
[2021-05-15] MEDS: insulin Lispro (HumaLOG) vial - multi-dose SQ SCH ×3 (12:07→18:56)
[2021-05-15] MEDS ORDERED: bisacodyl 10mg suppository rectal RC PRN (14:15)
[2021-05-15 15:55] VITALS: BP 126/82
[2021-05-15 18:00] VITALS: BP 109/69
--- NOTE | 2021-05-15 18:15 | NUR ---
Patient in room COVID 05. I have received report from Stephanie STEVENSON and had the opportunity to ask questions and assume patient care.
--- NOTE | 2021-05-15 18:16 | NUR ---
Gave report to Patricia STEVENSON
[2021-05-15] MEDS: docusate sod 100mg capsule PO SCH (20:05)
[2021-05-15] MEDS: polyethylene glycol 3350 17gm powd pack PO SCH (20:06)
[2021-05-15 22:00] VITALS: BP 149/71
[2021-05-15] MEDS: insulin glargine (Lantus) pen - multi-dose SQ SCH (22:20)
[2021-05-16 02:00] VITALS: BP 125/68
[2021-05-16] MEDS: normal saline 1000ml 1,000 ML IV SCH ×2 (02:56)
[2021-05-16 06:00] VITALS: BP 133/56
--- NOTE | 2021-05-16 06:30 | NUR ---
Problems reprioritized. Patient report given, questions answered & plan of care reviewed with Yarelis STEVENSON.
[2021-05-16] MEDS: K and/or MAG REPLACEMENT MC SCH ×2 (08:00→20:00)
[2021-05-16 08:16] LABS: BASOPHILS % (AUTO) 0 % (0-1); EOSINOPHILS % (AUTO) 0 % (0-6); HEMATOCRIT 42.9 % (42.0-52.0); HEMOGLOBIN 13.8 g/dl (14.0-17.9); LYMPHOCYTES # (AUTO) 0.6 X10'3 (1.1-4.8); LYMPHOCYTES % (AUTO) 2.6 % (21-51); MEAN CORPUSCULAR HEMOGLOBIN 28.7 PG (27.0-31.0); MEAN CORPUSCULAR HGB CONC 32.2 g/dL (33.0-36.5); MEAN PLATELET VOLUME 7.5 FL (7.4-10.4); MONOCYTES # (AUTO) 0.8 X10'3 (0-0.9); MONOCYTES % (AUTO) 3.4 % (2-12); NEUTROPHILS # (AUTO) 22.2 X10'3 (1.8-7.7); PLATELET COUNT 371 X10'3 (140-440); RED BLOOD COUNT 4.82 X10'6 (4.70-6.10); RED CELL DISTRIBUTION WIDTH 14.9 % (11.5-14.5); WHITE BLOOD COUNT 23.6 X10'3 (4.5-11.0)
[2021-05-16 08:27] LABS: D-DIMER 0.61 MG/L FEU (0-0.50)
[2021-05-16] MEDS: docusate sod 100mg capsule PO SCH ×2 (08:40→21:32)
[2021-05-16] MEDS: atorvastatin 10mg tablet PO SCH (08:40)
[2021-05-16] MEDS: methadone 10mg tablet PO SCH ×2 (08:40→19:45)
[2021-05-16] MEDS: lactobacillus rhamnosus 10,000 MMU CELLS/CAPSULE PO SCH ×2 (08:40→21:32)
[2021-05-16] MEDS: methylPREDNISolone sod succ/PF 40mg inj. IV SCH ×2 (08:41→21:32)
[2021-05-16] MEDS: enoxaparin 40mg/0.4ml syringe SUBCUT SCH ×2 (08:42→21:32)
[2021-05-16 08:46] LABS: ALANINE AMINOTRANSFERASE 67 U/L (12-78); ALBUMIN/GLOBULIN RATIO 0.7 (1.1-1.5); ALKALINE PHOSPHATASE 104 IU/L (46-116); ANION GAP 2 (8-16); ASPARTATE AMINO TRANSFERASE 37 U/L (10-37); BILIRUBIN,TOTAL 0.4 MG/DL (0.1-1.0); BLOOD UREA NITROGEN 42 MG/DL (7-18); BUN/CREATININE RATIO 43.3 (5.4-32.0); C-REACTIVE PROTEIN 0.91 MG/DL (0.0-0.5); CALCIUM 8.5 MG/DL (8.5-10.1); CHLORIDE 102 MMOL/L (99-107); CREATININE 0.97 MG/DL (0.60-1.10); GLUCOSE 213 MG/DL (70-104); POTASSIUM 5.3 MMOL/L (3.5-5.1); SODIUM 135 MMOL/L (135-145); TOTAL CARBON DIOXIDE 30.9 MMOL/L (24-32); TOTAL PROTEIN 4.8 G/DL (6.4-8.2); eGFR 77 ML/MIN
[2021-05-16] MEDS: lactose-reduced food (Ensure Enlive) - 237ml bottle PO SCH ×3 (08:55→18:24)
[2021-05-16 10:00] VITALS: BP 143/71
[2021-05-16] MEDS: insulin Lispro (HumaLOG) vial - multi-dose SQ SCH ×3 (10:19→19:39)
--- NOTE | 2021-05-16 12:28 | NUR ---
Reassessment: Pt's PO intake has improved some, avg 64% x 11 meals of Regular diet, though up to 100% 05/15, plus ~66% of ONS meeting needs. Noted pt's blood glucose has been elevated since admission though pt on meds which can cause hyperglycemia and pt just started on hyperglycemia protocol 05/15. If pt consistently eats 75-100% of meals on Regular diet, may consider changing to CCHO diet. Defer new onset diabetes education at this time given pt confused per EMR. LBM 05/15. No new nutritional intervention implemented at this time. Recommendations: 1) Continue EC7 regular diet 2) Chop meat; monitor need for encouragement and assistance with meals given pt A/O x 2 and confused 3) IF pt consistently consumes 75-100% of meals, may consider CCHO diet 3) Ensure Enlive TID, pending MD approval in EMR 4) Routine bowel care 5) Scaled weight this admit; weekly scaled weights thereafter Addendum: 05/16/21 at [address] Amended: Links added.
[2021-05-16] MEDS: HYDROcodone/acetaminophen 5mg/325mg tablet PO PRN ×2 (14:34→23:12)
[2021-05-16 18:00] VITALS: BP 123/64
--- NOTE | 2021-05-16 18:45 | NUR ---
Problems reprioritized. Patient report given, questions answered & plan of care reviewed with Rosanne STEVENSON.
[2021-05-16] MEDS: insulin glargine (Lantus) pen - multi-dose SQ SCH (21:16)
[2021-05-16] MEDS: polyethylene glycol 3350 17gm powd pack PO SCH (21:32)
[2021-05-16 22:00] VITALS: BP 139/74
[2021-05-17 02:00] VITALS: BP 133/69
[2021-05-17 07:14] LABS: BASOPHILS % (AUTO) 0.1 % (0-1); EOSINOPHILS % (AUTO) 0 % (0-6); HEMATOCRIT 41.8 % (42.0-52.0); HEMOGLOBIN 13.3 g/dl (14.0-17.9); LYMPHOCYTES # (AUTO) 0.8 X10'3 (1.1-4.8); LYMPHOCYTES % (AUTO) 2.7 % (21-51); MEAN CORPUSCULAR HEMOGLOBIN 28.7 PG (27.0-31.0); MEAN CORPUSCULAR HGB CONC 31.8 g/dL (33.0-36.5); MEAN CORPUSCULAR VOLUME 90.4 FL (78-98); MEAN PLATELET VOLUME 7.5 FL (7.4-10.4); MONOCYTES % (AUTO) 3.3 % (2-12); NEUTROPHILS # (AUTO) 26.7 X10'3 (1.8-7.7); NEUTROPHILS % (AUTO) 93.9 % (42-75); PLATELET COUNT 316 X10'3 (140-440); RED BLOOD COUNT 4.62 X10'6 (4.70-6.10); RED CELL DISTRIBUTION WIDTH 15.4 % (11.5-14.5)
[2021-05-17 07:23] LABS: WHITE BLOOD COUNT 28.4 X10'3 (4.5-11.0)
--- NOTE | 2021-05-17 07:35 | NUR ---
Problems reprioritized. Patient report given, questions answered & plan of care reviewed with ELVA CRISOSTOMO.
[2021-05-17 07:44] LABS: ALANINE AMINOTRANSFERASE 45 U/L (12-78); ALBUMIN 1.9 G/DL (3.4-5.0); ALBUMIN/GLOBULIN RATIO 0.7 (1.1-1.5); ALKALINE PHOSPHATASE 86 IU/L (46-116); ANION GAP 7 (8-16); ASPARTATE AMINO TRANSFERASE 21 U/L (10-37); BILIRUBIN,TOTAL 0.3 MG/DL (0.1-1.0); BLOOD UREA NITROGEN 41 MG/DL (7-18); BUN/CREATININE RATIO 47.7 (5.4-32.0); C-REACTIVE PROTEIN 0.66 MG/DL (0.0-0.5); CALCIUM 8.6 MG/DL (8.5-10.1); CHLORIDE 101 MMOL/L (99-107); CREATININE 0.86 MG/DL (0.60-1.10); GLUCOSE 150 MG/DL (70-104); POTASSIUM 5.2 MMOL/L (3.5-5.1); SODIUM 134 MMOL/L (135-145); TOTAL CARBON DIOXIDE 26.5 MMOL/L (24-32); TOTAL PROTEIN 4.7 G/DL (6.4-8.2); eGFR 89 ML/MIN
[2021-05-17 07:51] LABS: TOTAL CELLS COUNTED 100
[2021-05-17 07:52] LABS: PLATELET ESTIMATE NORMAL
[2021-05-17] MEDS: K and/or MAG REPLACEMENT MC SCH ×2 (07:52→19:53)
[2021-05-17 07:53] LABS: BURR CELLS FEW; ELLIPTOCYTES FEW
[2021-05-17 08:50] VITALS: BP 145/101
[2021-05-17] MEDS: lactose-reduced food (Ensure Enlive) - 237ml bottle PO SCH ×3 (09:11→17:40)
[2021-05-17] MEDS: docusate sod 100mg capsule PO SCH ×2 (09:16→19:52)
[2021-05-17] MEDS: methadone 10mg tablet PO SCH ×2 (09:16→19:52)
[2021-05-17] MEDS: methylPREDNISolone sod succ/PF 40mg inj. IV SCH ×2 (09:16→19:52)
[2021-05-17] MEDS: lactobacillus rhamnosus 10,000 MMU CELLS/CAPSULE PO SCH ×2 (09:16→19:52)
[2021-05-17] MEDS: atorvastatin 10mg tablet PO SCH (09:16)
[2021-05-17] MEDS: enoxaparin 40mg/0.4ml syringe SUBCUT SCH ×2 (09:16→19:54)
[2021-05-17 10:10] LABS: D-DIMER 0.53 MG/L FEU (0-0.50)
[2021-05-17 11:17] VITALS: BP 102/54
[2021-05-17] MEDS: insulin Lispro (HumaLOG) vial - multi-dose SQ SCH ×2 (13:39→18:26)
[2021-05-17] MEDS: HYDROcodone/acetaminophen 5mg/325mg tablet PO PRN ×2 (16:43→21:29)
[2021-05-17 19:30] VITALS: BP 112/69
--- NOTE | 2021-05-17 19:30 | NUR ---
pt found with o2 off; sats at 93; denies SOB except with exertion; RN during shift change reported pt taking off o2 NC throughout the shift Addendum: 05/18/21 at 0401 by Alison Cheema RN Amended: Links added.
[2021-05-17] MEDS: polyethylene glycol 3350 17gm powd pack PO SCH (19:54)
[2021-05-17] MEDS: insulin glargine (Lantus) pen - multi-dose SQ SCH (22:47)
[2021-05-17] MEDS: acetaminophen 325mg tablet PO PRN (22:52)
[2021-05-18] VITALS: BP 144/68
[2021-05-18 03:00] VITALS: BP 135/72
[2021-05-18] MEDS: atorvastatin 10mg tablet PO SCH (07:31)
[2021-05-18] MEDS: methylPREDNISolone sod succ/PF 40mg inj. IV SCH ×2 (07:31→20:51)
[2021-05-18] MEDS: docusate sod 100mg capsule PO SCH ×2 (07:31→20:51)
[2021-05-18] MEDS: methadone 10mg tablet PO SCH ×2 (07:31→20:52)
[2021-05-18] MEDS: enoxaparin 40mg/0.4ml syringe SUBCUT SCH ×2 (07:31→20:50)
[2021-05-18] MEDS: lactobacillus rhamnosus 10,000 MMU CELLS/CAPSULE PO SCH ×2 (07:31→20:52)
[2021-05-18] MEDS: lactose-reduced food (Ensure Enlive) - 237ml bottle PO SCH ×3 (08:00→18:09)
[2021-05-18] MEDS: K and/or MAG REPLACEMENT MC SCH ×2 (08:00→22:20)
[2021-05-18 09:31] LABS: BASOPHILS # (AUTO) 0.2 X10'3 (0-0.2); BASOPHILS % (AUTO) 0.6 % (0-1); EOSINOPHILS % (AUTO) 0.1 % (0-6); HEMATOCRIT 44.2 % (42.0-52.0); HEMOGLOBIN 14.4 g/dl (14.0-17.9); LYMPHOCYTES % (AUTO) 3.6 % (21-51); MEAN CORPUSCULAR HGB CONC 32.6 g/dL (33.0-36.5); MEAN PLATELET VOLUME 7.3 FL (7.4-10.4); MONOCYTES # (AUTO) 1.3 X10'3 (0-0.9); MONOCYTES % (AUTO) 4.9 % (2-12); NEUTROPHILS # (AUTO) 24.1 X10'3 (1.8-7.7); NEUTROPHILS % (AUTO) 90.8 % (42-75); PLATELET COUNT 356 X10'3 (140-440); RED BLOOD COUNT 4.97 X10'6 (4.70-6.10); RED CELL DISTRIBUTION WIDTH 15.7 % (11.5-14.5)
[2021-05-18 09:33] LABS: WHITE BLOOD COUNT 26.5 X10'3 (4.5-11.0)
[2021-05-18 09:48] LABS: D-DIMER 0.51 MG/L FEU (0-0.50)
[2021-05-18 09:54] LABS: ALANINE AMINOTRANSFERASE 47 U/L (12-78); ALBUMIN 2.2 G/DL (3.4-5.0); ALBUMIN/GLOBULIN RATIO 0.7 (1.1-1.5); ALKALINE PHOSPHATASE 88 IU/L (46-116); ANION GAP 0 (8-16); ASPARTATE AMINO TRANSFERASE 19 U/L (10-37); BILIRUBIN,TOTAL 0.5 MG/DL (0.1-1.0); BLOOD UREA NITROGEN 43 MG/DL (7-18); BUN/CREATININE RATIO 46.2 (5.4-32.0); C-REACTIVE PROTEIN 0.67 MG/DL (0.0-0.5); CHLORIDE 99 MMOL/L (99-107); CREATININE 0.93 MG/DL (0.60-1.10); GLUCOSE 199 MG/DL (70-104); POTASSIUM 5.1 MMOL/L (3.5-5.1); SODIUM 136 MMOL/L (135-145); TOTAL CARBON DIOXIDE 36.6 MMOL/L (24-32); TOTAL PROTEIN 5.5 G/DL (6.4-8.2); eGFR 81 ML/MIN
[2021-05-18] MEDS: HYDROcodone/acetaminophen 5mg/325mg tablet PO PRN ×2 (10:17→14:42)
[2021-05-18 10:20] LABS: PLATELET ESTIMATE NORMAL; TOTAL CELLS COUNTED 100
[2021-05-18] MEDS ORDERED: PRED20TA PO (13:38)
[2021-05-18] MEDS ORDERED: ASPI-1265 PO (13:38)
[2021-05-18] MEDS ORDERED: METF-950 PO (13:38)
[2021-05-18 15:00] VITALS: BP 129/58
--- NOTE | 2021-05-18 16:01 | NUR ---
Pt unaware of where he lives thinking someone from [place] will come get him. No such contact found. Searched For Pt on internet finding the [facility]. The motel was phoned and is aware the the Pt but states he is homeless. His cousin owns the motel. He has a son in [place] and an Aunt but may want to be involved. They will contact the family members. SS contacted for assistance.
--- NOTE | 2021-05-18 16:16 | NUR ---
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 Number was provided to CM for Follow up in am. pt will remain on unit until a safe DC can be arranged.
[2021-05-18 18:00] VITALS: BP 121/75
[2021-05-18] MEDS: insulin Lispro (HumaLOG) vial - multi-dose SQ SCH (18:14)
--- NOTE | 2021-05-18 18:53 | NUR ---
Problems reprioritized. Patient report given, questions answered & plan of care reviewed with ELVA COLLIER.
[2021-05-18] MEDS: polyethylene glycol 3350 17gm powd pack PO SCH (20:52)
[2021-05-18 22:00] VITALS: BP 154/70
[2021-05-18] MEDS: insulin glargine (Lantus) pen - multi-dose SQ SCH (22:18)
[2021-05-19 02:00] VITALS: BP 127/77
--- NOTE | 2021-05-19 05:22 | NUR ---
wakeful most of shift, with increased confusion noted after methadone talking a lot about [place]
--- NOTE | 2021-05-19 06:52 | NUR ---
Patient in room COVID 05. I have received report from Felecia STEVENSON and had the opportunity to ask questions and assume patient care.
[2021-05-19 07:17] LABS: BASOPHILS % (AUTO) 0.2 % (0-1); EOSINOPHILS # (AUTO) 0.1 X10'3 (0-0.9); EOSINOPHILS % (AUTO) 0.5 % (0-6); HEMATOCRIT 43.3 % (42.0-52.0); HEMOGLOBIN 13.9 g/dl (14.0-17.9); LYMPHOCYTES # (AUTO) 2.1 X10'3 (1.1-4.8); LYMPHOCYTES % (AUTO) 9.9 % (21-51); MEAN CORPUSCULAR HEMOGLOBIN 28.7 PG (27.0-31.0); MEAN CORPUSCULAR HGB CONC 32.2 g/dL (33.0-36.5); MEAN CORPUSCULAR VOLUME 89.2 FL (78-98); MEAN PLATELET VOLUME 7.1 FL (7.4-10.4); MONOCYTES # (AUTO) 1.7 X10'3 (0-0.9); MONOCYTES % (AUTO) 7.9 % (2-12); NEUTROPHILS # (AUTO) 17.5 X10'3 (1.8-7.7); NEUTROPHILS % (AUTO) 81.5 % (42-75); PLATELET COUNT 352 X10'3 (140-440); RED BLOOD COUNT 4.86 X10'6 (4.70-6.10); RED CELL DISTRIBUTION WIDTH 15.4 % (11.5-14.5); WHITE BLOOD COUNT 21.4 X10'3 (4.5-11.0)
[2021-05-19 07:27] LABS: D-DIMER 0.49 MG/L FEU (0-0.50)
[2021-05-19 07:36] LABS: ALANINE AMINOTRANSFERASE 38 U/L (12-78); ALBUMIN 2.1 G/DL (3.4-5.0); ALBUMIN/GLOBULIN RATIO 0.6 (1.1-1.5); ALKALINE PHOSPHATASE 78 IU/L (46-116); ANION GAP 4 (8-16); ASPARTATE AMINO TRANSFERASE 19 U/L (10-37); BILIRUBIN,TOTAL 0.4 MG/DL (0.1-1.0); BLOOD UREA NITROGEN 44 MG/DL (7-18); BUN/CREATININE RATIO 45.4 (5.4-32.0); C-REACTIVE PROTEIN 0.82 MG/DL (0.0-0.5); CHLORIDE 99 MMOL/L (99-107); CREATININE 0.97 MG/DL (0.60-1.10); GLUCOSE 81 MG/DL (70-104); POTASSIUM 5.2 MMOL/L (3.5-5.1); SODIUM 134 MMOL/L (135-145); TOTAL PROTEIN 5.4 G/DL (6.4-8.2); eGFR 77 ML/MIN
[2021-05-19] MEDS: atorvastatin 10mg tablet PO SCH (07:41)
[2021-05-19] MEDS: methadone 10mg tablet PO SCH ×2 (07:41→19:14)
[2021-05-19] MEDS: docusate sod 100mg capsule PO SCH ×2 (07:41→19:14)
[2021-05-19] MEDS: methylPREDNISolone sod succ/PF 40mg inj. IV SCH ×2 (07:41→19:14)
[2021-05-19] MEDS: lactobacillus rhamnosus 10,000 MMU CELLS/CAPSULE PO SCH ×2 (07:41→20:43)
[2021-05-19] MEDS: lactose-reduced food (Ensure Enlive) - 237ml bottle PO SCH ×3 (07:48→18:00)
[2021-05-19] MEDS: enoxaparin 40mg/0.4ml syringe SUBCUT SCH ×2 (07:49→19:13)
[2021-05-19 08:00] VITALS: BP 133/74
[2021-05-19] MEDS: K and/or MAG REPLACEMENT MC SCH ×2 (08:00→19:30)
[2021-05-19 08:16] LABS: ANISOCYTOSIS FEW; BURR CELLS FEW; PLATELET ESTIMATE NORMAL; TOTAL CELLS COUNTED 100
--- NOTE | 2021-05-19 10:00 | NUR ---
O2 Sat at rest on room air:_85__% If below 89%: Recovery O2 Sat at rest on _3__LPM:_95__%:___% via__nasal cannula__(mask/nasal cannula, etc..) No further documentation is necessary. If O2 Sat did not drop below 89% on room air,ambulate patient on room air. O2 Sat while ambulating on room air:___% Recovery O2 Sat while ambulating on ___LPM:___% No further documentation is necessary. If patient does not drop below 89% while ambulating, he/she does not qualify for home O2.
--- NOTE | 2021-05-19 10:55 | NUR ---
Patient had episode of low O2 sat 84-85% (room air), when I checked on him he was on bedside commode and he was on nasal cannula at that time. Patient reminded to keep the oxygen on as his O2 sat was low. Patient stated understanding
[2021-05-19] MEDS: HYDROcodone/acetaminophen 5mg/325mg tablet PO PRN ×3 (11:04→20:45)
--- NOTE | 2021-05-19 11:14 | NUR ---
Patient could not remember his exact address in [place], he said to me "If I remember, I will let you know!"
--- NOTE | 2021-05-19 11:21 | NUR ---
Currently patient's O2 sat is 95% at 3 lpm/nasal cannula. Dr. Jaramillo was aware about low O2 sat reading when patient was off oxygen while at the bedside commode.
[2021-05-19 12:00] VITALS: BP 111/69
[2021-05-19] MEDS: insulin Lispro (HumaLOG) vial - multi-dose SQ SCH ×2 (13:17→19:16)
[2021-05-19 17:00] VITALS: BP 127/58
[2021-05-19 18:00] VITALS: BP 107/84
--- NOTE | 2021-05-19 18:35 | NUR ---
Problems reprioritized. Patient report given, questions answered & plan of care reviewed with Prudence RN.
--- NOTE | 2021-05-19 18:52 | NUR ---
Patient in room COVID 05. I have received report from CHRIS STEVENSON and had the opportunity to ask questions and assume patient care.
[2021-05-19] MEDS: polyethylene glycol 3350 17gm powd pack PO SCH (20:43)
[2021-05-19] MEDS: insulin glargine (Lantus) pen - multi-dose SQ SCH (20:57)
[2021-05-19 22:00] VITALS: BP 91/63
--- NOTE | 2021-05-20 06:39 | NUR ---
Problems reprioritized. Patient report given, questions answered & plan of care reviewed with FLOR STEVENSON.
[2021-05-20] MEDS: K and/or MAG REPLACEMENT MC SCH ×2 (08:00→20:00)
[2021-05-20] MEDS: docusate sod 100mg capsule PO SCH ×2 (08:30→19:59)
[2021-05-20] MEDS: atorvastatin 10mg tablet PO SCH (08:30)
[2021-05-20] MEDS: methadone 10mg tablet PO SCH ×2 (08:30→19:59)
[2021-05-20] MEDS: lactobacillus rhamnosus 10,000 MMU CELLS/CAPSULE PO SCH ×2 (08:30→20:00)
[2021-05-20] MEDS: methylPREDNISolone sod succ/PF 40mg inj. IV SCH (08:31)
[2021-05-20] MEDS: lactose-reduced food (Ensure Enlive) - 237ml bottle PO SCH ×3 (08:32→18:00)
[2021-05-20] MEDS: enoxaparin 40mg/0.4ml syringe SUBCUT SCH ×2 (08:32→19:59)
[2021-05-20] MEDS: insulin Lispro (HumaLOG) vial - multi-dose SQ SCH ×2 (08:40→13:42)
[2021-05-20 08:43] LABS: BASOPHILS % (AUTO) 0.1 % (0-1); EOSINOPHILS # (AUTO) 0.2 X10'3 (0-0.9); EOSINOPHILS % (AUTO) 0.7 % (0-6); HEMATOCRIT 42.2 % (42.0-52.0); HEMOGLOBIN 13.5 g/dl (14.0-17.9); LYMPHOCYTES # (AUTO) 2.3 X10'3 (1.1-4.8); LYMPHOCYTES % (AUTO) 11.3 % (21-51); MEAN CORPUSCULAR HEMOGLOBIN 28.7 PG (27.0-31.0); MEAN CORPUSCULAR HGB CONC 32.1 g/dL (33.0-36.5); MEAN CORPUSCULAR VOLUME 89.3 FL (78-98); MEAN PLATELET VOLUME 7.7 FL (7.4-10.4); MONOCYTES # (AUTO) 1.9 X10'3 (0-0.9); MONOCYTES % (AUTO) 9.3 % (2-12); NEUTROPHILS # (AUTO) 16.1 X10'3 (1.8-7.7); NEUTROPHILS % (AUTO) 78.6 % (42-75); PLATELET COUNT 397 X10'3 (140-440); RED BLOOD COUNT 4.72 X10'6 (4.70-6.10); RED CELL DISTRIBUTION WIDTH 15.3 % (11.5-14.5); WHITE BLOOD COUNT 20.5 X10'3 (4.5-11.0)
[2021-05-20 08:58] LABS: ALANINE AMINOTRANSFERASE 39 U/L (12-78); ALBUMIN 2.2 G/DL (3.4-5.0); ALBUMIN/GLOBULIN RATIO 0.6 (1.1-1.5); ALKALINE PHOSPHATASE 77 IU/L (46-116); ANION GAP 1 (8-16); ASPARTATE AMINO TRANSFERASE 17 U/L (10-37); BILIRUBIN,TOTAL 0.4 MG/DL (0.1-1.0); BLOOD UREA NITROGEN 58 MG/DL (7-18); BUN/CREATININE RATIO 59.2 (5.4-32.0); C-REACTIVE PROTEIN 1.69 MG/DL (0.0-0.5); CALCIUM 9.3 MG/DL (8.5-10.1); CHLORIDE 103 MMOL/L (99-107); CREATININE 0.98 MG/DL (0.60-1.10); GLUCOSE 73 MG/DL (70-104); POTASSIUM 5.4 MMOL/L (3.5-5.1); SODIUM 139 MMOL/L (135-145); TOTAL CARBON DIOXIDE 34.8 MMOL/L (24-32); TOTAL PROTEIN 5.6 G/DL (6.4-8.2); eGFR 76 ML/MIN
[2021-05-20 09:00] LABS: D-DIMER 0.79 MG/L FEU (0-0.50)
[2021-05-20 09:10] LABS: ANISOCYTOSIS 1+; PLATELET ESTIMATE NORMAL; TOTAL CELLS COUNTED 100
[2021-05-20 09:11] LABS: POIKILOCYTOSIS FEW
[2021-05-20 10:39] VITALS: BP 127/71
[2021-05-20 14:00] VITALS: BP 109/64
[2021-05-20 18:00] VITALS: BP 145/75
--- NOTE | 2021-05-20 18:43 | NUR ---
Patient in room COVID 05. I have received report from FLOR STEVENSON and had the opportunity to ask questions and assume patient care.
--- NOTE | 2021-05-20 18:49 | NUR ---
Problems reprioritized. Patient report given, questions answered & plan of care reviewed with ELVA Vasquez.
[2021-05-20] MEDS: polyethylene glycol 3350 17gm powd pack PO SCH (21:00)
[2021-05-20] MEDS: insulin glargine (Lantus) pen - multi-dose SQ SCH (21:37)
[2021-05-20 22:00] VITALS: BP 103/56
[2021-05-21 02:00] VITALS: BP 139/73
[2021-05-21 06:00] VITALS: BP 116/64
--- NOTE | 2021-05-21 06:30 | NUR ---
Patient in room COVID 05. I have received report from jahaira williamson and had the opportunity to ask questions and assume patient care.
[2021-05-21] MEDS: atorvastatin 10mg tablet PO SCH (08:00)
[2021-05-21] MEDS: K and/or MAG REPLACEMENT MC SCH ×2 (08:00→20:00)
[2021-05-21] MEDS: methylPREDNISolone sod succ/PF 40mg inj. IV SCH (08:14)
[2021-05-21] MEDS: methadone 10mg tablet PO SCH ×2 (08:15→19:57)
[2021-05-21] MEDS: docusate sod 100mg capsule PO SCH ×2 (08:15→20:00)
[2021-05-21] MEDS: enoxaparin 40mg/0.4ml syringe SUBCUT SCH ×2 (08:15→21:45)
[2021-05-21] MEDS: lactobacillus rhamnosus 10,000 MMU CELLS/CAPSULE PO SCH ×2 (08:15→21:45)
[2021-05-21] MEDS: lactose-reduced food (Ensure Enlive) - 237ml bottle PO SCH ×3 (08:25→18:53)
--- NOTE | 2021-05-21 09:07 | NUR ---
Reassessment: Pt's PO intake has improved, mostly 100% of meals on CCHO diet and ONS meeting needs. Pt remains confused per physical assessment though able to feed self. No N/V/D noted, LBM 9/ receiving routine colace. Defer new onset diabetes education at this time given pt's cognition. No new nutritional intervention at this time, will continue to monitor. Recommendations: 1) Continue EC7 CCHO diet 2) Chop meat; monitor need for encouragement and assistance with meals given pt A/O x 2 and confused 3) Ensure Enlive TID 4) Routine bowel care 5) Scaled weight this admit; weekly scaled weights thereafter Addendum: 05/21/21 at [address] Amended: Links added.
--- NOTE | 2021-05-21 09:30 | NUR ---
Dr. sales aware of critical value;wbc=27
[2021-05-21 09:48] LABS: D-DIMER 0.66 MG/L FEU (0-0.50)
[2021-05-21 09:52] LABS: BASOPHILS # (AUTO) 0.1 X10'3 (0-0.2); EOSINOPHILS % (AUTO) 0.2 % (0-6); RED CELL DISTRIBUTION WIDTH 15.5 % (11.5-14.5)
[2021-05-21 09:54] LABS: BASOPHILS % (AUTO) 0.2 % (0-1); HEMATOCRIT 38.6 % (42.0-52.0); HEMOGLOBIN 12.3 g/dl (14.0-17.9); LYMPHOCYTES # (AUTO) 1.4 X10'3 (1.1-4.8); LYMPHOCYTES % (AUTO) 5.3 % (21-51); MEAN CORPUSCULAR HEMOGLOBIN 28.5 PG (27.0-31.0); MEAN PLATELET VOLUME 7.7 FL (7.4-10.4); MONOCYTES # (AUTO) 1.7 X10'3 (0-0.9); MONOCYTES % (AUTO) 6.2 % (2-12); NEUTROPHILS # (AUTO) 23.8 X10'3 (1.8-7.7); NEUTROPHILS % (AUTO) 88.1 % (42-75); PLATELET COUNT 362 X10'3 (140-440); RED BLOOD COUNT 4.33 X10'6 (4.70-6.10)
[2021-05-21 10:05] LABS: ALANINE AMINOTRANSFERASE 38 U/L (12-78); ALBUMIN 2.2 G/DL (3.4-5.0); ALBUMIN/GLOBULIN RATIO 0.6 (1.1-1.5); ALKALINE PHOSPHATASE 76 IU/L (46-116); ANION GAP 4 (8-16); ASPARTATE AMINO TRANSFERASE 20 U/L (10-37); BILIRUBIN,TOTAL 0.5 MG/DL (0.1-1.0); BLOOD UREA NITROGEN 55 MG/DL (7-18); BUN/CREATININE RATIO 55.6 (5.4-32.0); C-REACTIVE PROTEIN 5.47 MG/DL (0.0-0.5); CALCIUM 9.4 MG/DL (8.5-10.1); CHLORIDE 98 MMOL/L (99-107); CREATININE 0.99 MG/DL (0.60-1.10); GLUCOSE 148 MG/DL (70-104); SODIUM 135 MMOL/L (135-145); TOTAL CARBON DIOXIDE 32.6 MMOL/L (24-32); TOTAL PROTEIN 5.7 G/DL (6.4-8.2); eGFR 75 ML/MIN
[2021-05-21 10:57] LABS: TOTAL CELLS COUNTED 100
[2021-05-21 10:58] LABS: PLATELET ESTIMATE NORMAL; POIKILOCYTOSIS FEW
[2021-05-21 11:00] VITALS: BP 106/64
--- NOTE | 2021-05-21 18:30 | NUR ---
Patient in room COVID 02. I have received report from SARAY and had the opportunity to ask questions and assume patient care.
--- NOTE | 2021-05-21 18:45 | NUR ---
Problems reprioritized. Patient report given, questions answered & plan of care reviewed with jahaira flood.
[2021-05-21 19:00] VITALS: BP 106/64
[2021-05-21] MEDS: insulin Lispro (HumaLOG) vial - multi-dose SQ SCH (19:13)
[2021-05-21] MEDS: HYDROcodone/acetaminophen 5mg/325mg tablet PO PRN ×2 (19:20→23:47)
[2021-05-21] MEDS: polyethylene glycol 3350 17gm powd pack PO SCH (21:00)
[2021-05-21] MEDS: insulin glargine (Lantus) pen - multi-dose SQ SCH (21:44)
[2021-05-22] VITALS: BP 106/64
[2021-05-22 06:00] VITALS: BP 108/57
--- NOTE | 2021-05-22 06:39 | NUR ---
Problems reprioritized. Patient report given, questions answered & plan of care reviewed with
[2021-05-22] MEDS: lactobacillus rhamnosus 10,000 MMU CELLS/CAPSULE PO SCH ×2 (07:43→20:14)
[2021-05-22] MEDS: docusate sod 100mg capsule PO SCH ×2 (07:43→20:00)
[2021-05-22] MEDS: atorvastatin 10mg tablet PO SCH (07:44)
[2021-05-22] MEDS: methadone 10mg tablet PO SCH ×2 (07:44→20:14)
[2021-05-22] MEDS: enoxaparin 40mg/0.4ml syringe SUBCUT SCH ×2 (07:46→20:15)
[2021-05-22] MEDS: lactose-reduced food (Ensure Enlive) - 237ml bottle PO SCH ×3 (07:48→14:31)
[2021-05-22] MEDS: methylPREDNISolone sod succ/PF 40mg inj. IV SCH (08:00)
[2021-05-22] MEDS: K and/or MAG REPLACEMENT MC SCH ×2 (08:00→20:00)
[2021-05-22 08:06] LABS: BASOPHILS % (AUTO) 0.1 % (0-1); D-DIMER 0.64 MG/L FEU (0-0.50); EOSINOPHILS # (AUTO) 0.2 X10'3 (0-0.9); EOSINOPHILS % (AUTO) 1.5 % (0-6); HEMATOCRIT 34.2 % (42.0-52.0); HEMOGLOBIN 11.3 g/dl (14.0-17.9); LYMPHOCYTES # (AUTO) 1.9 X10'3 (1.1-4.8); LYMPHOCYTES % (AUTO) 14.3 % (21-51); MEAN CORPUSCULAR HEMOGLOBIN 29.1 PG (27.0-31.0); MEAN CORPUSCULAR VOLUME 88.1 FL (78-98); MEAN PLATELET VOLUME 7.5 FL (7.4-10.4); MONOCYTES # (AUTO) 1.2 X10'3 (0-0.9); NEUTROPHILS # (AUTO) 9.8 X10'3 (1.8-7.7); NEUTROPHILS % (AUTO) 75.1 % (42-75); PLATELET COUNT 349 X10'3 (140-440); RED BLOOD COUNT 3.89 X10'6 (4.70-6.10); RED CELL DISTRIBUTION WIDTH 15.5 % (11.5-14.5); WHITE BLOOD COUNT 13.1 X10'3 (4.5-11.0)
[2021-05-22 08:14] LABS: ALANINE AMINOTRANSFERASE 28 U/L (12-78); ALBUMIN/GLOBULIN RATIO 0.6 (1.1-1.5); ALKALINE PHOSPHATASE 65 IU/L (46-116); ANION GAP 6 (8-16); ASPARTATE AMINO TRANSFERASE 15 U/L (10-37); BILIRUBIN,TOTAL 0.3 MG/DL (0.1-1.0); BLOOD UREA NITROGEN 52 MG/DL (7-18); BUN/CREATININE RATIO 55.3 (5.4-32.0); C-REACTIVE PROTEIN 10.64 MG/DL (0.0-0.5); CALCIUM 8.9 MG/DL (8.5-10.1); CHLORIDE 102 MMOL/L (99-107); CREATININE 0.94 MG/DL (0.60-1.10); GLUCOSE 85 MG/DL (70-104); POTASSIUM 4.8 MMOL/L (3.5-5.1); SODIUM 138 MMOL/L (135-145); TOTAL CARBON DIOXIDE 30.5 MMOL/L (24-32); TOTAL PROTEIN 5.4 G/DL (6.4-8.2); eGFR 80 ML/MIN
[2021-05-22] MEDS ORDERED: predniSONE 20 mg tablet PO ONE (11:05)
[2021-05-22 12:37] VITALS: BP 99/61
[2021-05-22] MEDS: HYDROcodone/acetaminophen 5mg/325mg tablet PO PRN (12:45)
[2021-05-22 17:51] VITALS: BP 107/54
--- NOTE | 2021-05-22 18:59 | NUR ---
Patient in room COVID 02. I have received report from ELVA Mariee and had the opportunity to ask questions and assume patient care.
--- NOTE | 2021-05-22 19:04 | NUR ---
REPORT GIVEN TO NING STEVENSON, PT STABLE AND APPROPRIATE AT THIS TIME.
[2021-05-22] MEDS: polyethylene glycol 3350 17gm powd pack PO SCH (20:17)
[2021-05-22 22:00] VITALS: BP 116/68
[2021-05-22] MEDS: insulin Lispro (HumaLOG) vial - multi-dose SQ SCH (22:31)
[2021-05-22] MEDS: insulin glargine (Lantus) pen - multi-dose SQ SCH (22:33)
[2021-05-23 02:00] VITALS: BP 116/68
[2021-05-23 06:00] VITALS: BP 116/68
--- NOTE | 2021-05-23 06:42 | NUR ---
Patient in room COVID 02. I have received report from ELVA BARCLAY and had the opportunity to ask questions and assume patient care.
--- NOTE | 2021-05-23 06:42 | NUR ---
Problems reprioritized. Patient report given, questions answered & plan of care reviewed with ELVA Moore.
[2021-05-23] MEDS: K and/or MAG REPLACEMENT MC SCH (08:00)
[2021-05-23] MEDS: methadone 10mg tablet PO SCH (08:12)
[2021-05-23] MEDS: docusate sod 100mg capsule PO SCH (08:12)
[2021-05-23] MEDS: atorvastatin 10mg tablet PO SCH (08:12)
[2021-05-23] MEDS: lactobacillus rhamnosus 10,000 MMU CELLS/CAPSULE PO SCH (08:12)
[2021-05-23] MEDS: enoxaparin 40mg/0.4ml syringe SUBCUT SCH (08:13)
[2021-05-23] MEDS: lactose-reduced food (Ensure Enlive) - 237ml bottle PO SCH ×2 (08:13→09:13)
[2021-05-23] MEDS ORDERED: predniSONE 20 mg tablet PO SCH (08:30)
[2021-05-23 11:00] VITALS: BP 115/62
--- NOTE | 2021-05-23 16:00 | NUR ---
pt transport coordinated with case management back to pts home in [facility], pt aware to [employer] prescriptions at [facility], and f/u with pmd in 2-3 days, no iv access inpt per md order, pt dc'd via w/c with all belongings
== END 2021-05-23 15:15 | disposition home or self-care (01) | DRG 177 ==
LOC: ER 00:06 → ED HOLD 01:29 → UNDOADMIN 01:29 → ED HOLD 01:33 → COVID IP 03:20 → ED HOLD 03:20 → COVID IP 05-11 14:53
PROVIDERS: ADMIT Internal Medicine; ATTEND Family Medicine
PROC: XW033E5 Introduction of Remdesivir Anti-infective into Peripheral Vein, Percutaneous Approach, New Technology Group 5 (ICD-10-PCS; principal; 2021-05-08)
PROC: 5A0955A Assistance with Respiratory Ventilation, Greater than 96 Consecutive Hours, High Flow/Velocity Cannula (ICD-10-PCS; 2021-05-10)
DX: U07.1 COVID-19 (principal); J96.01 Acute respiratory failure with hypoxia; J12.82 Pneumonia due to coronavirus disease 2019; E43 Unspecified severe protein-calorie malnutrition; G93.41 Metabolic encephalopathy; J44.0 Chronic obstructive pulmonary disease with (acute) lower respiratory infection; D68.69 Other thrombophilia; E11.9 Type 2 diabetes mellitus without complications; E78.5 Hyperlipidemia, unspecified; G89.4 Chronic pain syndrome; E87.5 Hyperkalemia; Z60.2 Problems related to living alone; D72.823 Leukemoid reaction; F11.90 Opioid use, unspecified, uncomplicated; M10.9 Gout, unspecified; M54.9 Dorsalgia, unspecified; F03.90 Unspecified dementia, unspecified severity, without behavioral disturbance, psychotic disturbance, mood disturbance, and anxiety; E78.00 Pure hypercholesterolemia, unspecified; F17.210 Nicotine dependence, cigarettes, uncomplicated; I10 Essential (primary) hypertension; T38.0X5A Adverse effect of glucocorticoids and synthetic analogues, initial encounter; Y92.230 Patient room in hospital as the place of occurrence of the external cause; Z79.82 Long term (current) use of aspirin; Z79.84 Long term (current) use of oral hypoglycemic drugs; Z68.21 Body mass index [BMI] 21.0-21.9, adult; Z79.899 Other long term (current) drug therapy
CPT/HCPCS: 36415; 36600; 70450; 71045; 80053; 81001; 82803; 82948; 83036; 83605; 83615; 83735; 84145; 85007; 85018; 85025; 85379; 86140; 87040; 87081; 93005; 94760; 97110; 97116; 97161; 97530; 97535; 99285; G0378; J0696; J1100; J1644; J1650; J1815; J2920; J7030; J7512